=== PATIENT | male | born 1985 | race Caucasian/White ===

== ENCOUNTER 2020-07-10 11:19 | Emergency (ER) | payer BC ==
[2020-07-10 17:32] LABS: HIV (1/2) Antibody/Antigen Non-Reactive (NonReactive); HIV 1/2 INDEX 0.08 S/CO (<1.00); Hep C IgG Ab Non-Reactive (NonReactive); Hep C Index 0.09 S/CO (0-0.79)
[2020-07-10 18:13] LABS: HBSAB Concentration 21496.42 mIU/mL; Hep B Surf AB Reactive (NonReactive)
== END 2020-07-10 11:55 | disposition home or self-care (01) ==
LOC: MADERS 11:19
DX: S61.031A Puncture wound without foreign body of right thumb without damage to nail, initial encounter (principal); E03.9 Hypothyroidism, unspecified; Z79.899 Other long term (current) drug therapy; W26.9XXA Contact with unspecified sharp object(s), initial encounter
CPT/HCPCS: 36415; 86706; 86803; 87389; 99283